=== PATIENT | male | born 1940 | race Caucasian/White ===

== ENCOUNTER 2019-07-26 14:37 | Emergency (ER) | payer MEDICARE, SELFPAY ==
[2019-07-26 14:45] VITALS: PULSE 69; RESP 24; TEMP 36.8; O2SAT 99
--- NOTE | 2019-07-26 14:57 | DI.RAD.S_ITS ---
PROCEDURE: XR CHEST 1V INDICATIONS: SHORTNESS OF BREATH TECHNIQUE: One view of the chest was acquired. COMPARISON: None. FINDINGS: Surgical changes and devices: None. Lungs and pleura: Lungs are clear. No pleural effusions or pneumothorax. A small rounded area of increased density at the lateral right lung base probably represents a nipple shadow. Mediastinum: Mediastinal contours appear normal. Heart size is borderline enlarged. There may be aortic atherosclerosis. Bones and chest wall: No suspicious bony lesions. Degenerative changes of the spine and shoulders are not adequately characterized. Overlying soft tissues appear unremarkable. IMPRESSION: No definite acute cardiopulmonary process is evident. Dictated by: Al Zelaya M.D. on 07/26/2019 at 14:16 Approved by: Al Zelaya M.D. on 07/26/2019 at 14:19
--- NOTE | 2019-07-26 15:02 | ED_ITS ---
HPI - SOB/Dyspnea General Chief Complaint: Shortness of Breath/Dyspnea Stated Complaint: SOB Time Seen by Provider: 07/26/19 14:47 Source: patient Mode of arrival: Ambulatory Limitations: no limitations History of Present Illness HPI Narrative: Patient is a 79-year-old male who presents with increasing shortness of breath. He is rather active. He noticed last night had he started coughing. He was walking up the hill from the [place] today which is something he typically does without any difficulty he started having some increased shortness of breath not enough to stop him. He denies any productive cough he has no chest pain. He does have some audible wheezing. Patient also states that he returned from [place] 4 days ago after being there for number of months. No prior history of a blood clot. MD Complaint: shortness of breath Onset (ago): hour(s) Severity: moderate Consistency/Duration: constant Relieving factors: rest Exacerbating factors: exertion Related Data Home Medications Medication Instructions Recorded Confirmed aspirin 81 mg PO DAILY 07/26/19 07/26/19 pravastatin 40 mg PO BEDTIME 07/26/19 07/26/19 Previous Rx's Medication Instructions Recorded albuterol sulfate 2 puff INHALATION Q4-6H PRN #8.5 07/26/19 gram prednisone 40 mg PO DAILY #10 tab 07/26/19 Review of Systems Review of Systems ROS Unobtainable: All systems reviewed & are unremarkable except as noted in HPI and below Constitutional Constitutional: Denies chills, Denies fever(s), Denies lethargy and Denies weakness Eyes Eyes: Denies change in vision, Denies eye discharge, Denies irritation and Denies loss of vision ENT Ears, Nose, Mouth, and Throat: Denies change in voice, Denies neck pain and Denies sore throat Cardiovascular Cardiovascular: Denies chest pain, Reports pedal edema (always on the right leg not worse today), Reports dyspnea and Reports dyspnea on exertion Respiratory Respiratory: Reports dyspnea and Reports dyspnea on exertion Gastrointestinal Gastrointestinal: Denies abdominal pain, Denies change in bowel habits, Denies diarrhea, Denies nausea and Denies vomiting Genitourinary Genitourinary: Denies hematuria, Denies flank pain, Denies urinary incontinence and Denies urinary urgency Musculoskeletal Musculoskeletal: Denies neck pain Integumentary/Breasts Skin/Breast: Denies pruritus, Denies erythema, Denies rash and Denies wounds Neurologic Neurologic: Denies loss of vision and Denies weakness Patient History Medical History Patient denies medical problems (Acute) Exam Initial Vital Signs Initial Vital Signs: Vital Signs Temperature 98.3 F 07/26/19 14:45 Pulse Rate 69 07/26/19 14:45 Respiratory Rate 24 07/26/19 14:45 Pulse Oximetry 99 07/26/19 14:45 GENERAL: Alert male appears younger than stated HEENT: Head atraumatic,EOMI, pupils reactive, face symmetric, moist mucous membranes CARDIOVASCULAR: Regular rate and rhythm without murmurs, rubs or gallops. RESPIRATORY: Mild conversational dyspnea wheezing bilaterally ABDOMEN: Soft, nontender. Normoactive bowel sounds all 4 quadrants. No guarding or rebound. EXTREMITIES: Normal range of motion, no clubbing or edema. Neurovascularly intact NEUROLOGICAL: Alert and oriented x4.Normal gait and speech. Cranial nerves II through XII grossly intact. SKIN: Warm, dry, no laceration, no petechiae, no rashes or lesions. Course Orders Ordered: ED Orders 07/26/19 14:55 B Type Natriuretic Peptide Stat Complete Blood Count AUTO DIFF Stat Comprehensive Metabolic Panel Stat Partial Thromboplastin Time Stat Procalcitonin Stat Prothrombin Time INR Stat Troponin & CK Cardiac Panel Stat 07/26/19 14:56 Consult to Respiratory Therapy Evaluate & Treat 07/26/19 14:57 XR chest 1V Stat 07/26/19 15:03 EKG-12 Lead Stat 07/26/19 15:15 Lactate (Lactic Acid) Stat 07/26/19 16:18 CT angio chest PE protocol Stat Discontinued Medications Albuterol/Ipratropium (Duoneb) 3 ml INH NOW ONE Stop: 07/26/19 14:49 Last Admin: 07/26/19 15:20 Dose: 3 ml Documented by: NAOMI Vital Signs Vital signs: Vital Signs - 8 hr 07/26/19 14:45 07/26/19 15:21 07/26/19 16:47 Temperature 98.3 F Pulse Rate 69 90 76 Respiratory Rate 24 20 16 Blood Pressure Blood Pressure [Left Arm] 147/76 H Pulse Oximetry 99 97 96 07/26/19 17:00 07/26/19 17:42 07/26/19 18:02 Temperature Pulse Rate 81 84 84 Respiratory Rate 19 17 17 Blood Pressure 158/61 H Blood Pressure [Left Arm] 153/85 H 158/61 H Pulse Oximetry 95 95 95 MDM - SOB/Dyspnea Lab Data Attestation: I reviewed the patient's lab results. Result diagrams: 07/26/19 14:55 07/26/19 14:55 Labs: Lab Results 07/26/19 07/26/19 07/26/19 Range/Units 14:55 14:55 14:55 WBC 11.0 (4.5-11.0) X10^3/uL RBC 4.76 (4.5-5.9) X10^6/uL Hgb 15.1 (13.5-17.5) g/dL Hct 44.8 (41-53) % MCV 94.1 (80-100) fL MCH 31.7 (26-34) PG MCHC 33.7 (30-36) % RDW 13.2 (11.6-14.8) % Plt Count 201 (150-400) X10^3/uL Neut % (Auto) 88.5 H (50-75) % Lymph % (Auto) 4.9 L (25-40) % Campbell % (Auto) 5.1 (3-14) % Eos % (Auto) 1.0 L (2-4) % Baso % (Auto) 0.5 (0-2) % Neut # (Auto) 9800 H (2005-2255) /uL Lymph # (Auto) 500 L (6416-2457) /uL Campbell # (Auto) 600 (0-900) /uL Eos # (Auto) 100 (0-450) /uL Baso # (Auto) 100 (0-100) /uL PT 11.4 (10.1-12.7) SECONDS INR 1.0 (0.9-1.3) APTT 29 (26.4-36.2) SECONDS Sodium 134 L (137-145) mmol/L Potassium 4.4 (3.4-5.1) mmol/L Chloride 98 (98-107) mmol/L Carbon Dioxide 27 (22-32) mmol/L BUN 15 (9-20) mg/dL Creatinine 0.70 (0.66-1.25) mg/dL Estimated GFR > 60.0 (>60) mL/min BUN/Creatinine Ratio 21.4 (6-22) Glucose 120 H (80-110) mg/dL Lactate (0.7-2.1) mmol/L Calcium 9.0 (8.4-10.2) mg/dL Total Bilirubin 1.1 (0.2-1.3) mg/dL AST 32 (17-59) IU/L ALT 19 (<50) IU/L Alkaline Phosphatase 81 (38-126) U/L Total Creatine Kinase 184 H (55-170) U/L CK-MB (CK-2) 5.16 H (<2.37) ng/mL CK-MB (CK-2) Rel Index 2.8 (1.5-5.0) % Troponin I 0.012 (0.01-0.034) ng/mL B-Natriuretic Peptide 109 H (<100) Total Protein 7.0 (6.3-8.2) g/dL Albumin 4.5 (3.5-5.0) g/dL Globulin 2.5 (1.7-4.1) g/dL Albumin/Globulin Ratio 1.8 (1.0-2.8) Procalcitonin (<0.5) ng/mL 07/26/19 07/26/19 Range/Units 14:55 15:15 WBC (4.5-11.0) X10^3/uL RBC (4.5-5.9) X10^6/uL Hgb (13.5-17.5) g/dL Hct (41-53) % MCV (80-100) fL MCH (26-34) PG MCHC (30-36) % RDW (11.6-14.8) % Plt Count (150-400) X10^3/uL Neut % (Auto) (50-75) % Lymph % (Auto) (25-40) % Campbell % (Auto) (3-14) % Eos % (Auto) (2-4) % Baso % (Auto) (0-2) % Neut # (Auto) (9785-0544) /uL Lymph # (Auto) (9055-1518) /uL Campbell # (Auto) (0-900) /uL Eos # (Auto) (0-450) /uL Baso # (Auto) (0-100) /uL PT (10.1-12.7) SECONDS INR (0.9-1.3) APTT (26.4-36.2) SECONDS Sodium (137-145) mmol/L Potassium (3.4-5.1) mmol/L Chloride (98-107) mmol/L Carbon Dioxide (22-32) mmol/L BUN (9-20) mg/dL Creatinine (0.66-1.25) mg/dL Estimated GFR (>60) mL/min BUN/Creatinine Ratio (6-22) Glucose (80-110) mg/dL Lactate 0.9 (0.7-2.1) mmol/L Calcium (8.4-10.2) mg/dL Total Bilirubin (0.2-1.3) mg/dL AST (17-59) IU/L ALT (<50) IU/L Alkaline Phosphatase (38-126) U/L Total Creatine Kinase (55-170) U/L CK-MB (CK-2) (<2.37) ng/mL CK-MB (CK-2) Rel Index (1.5-5.0) % Troponin I (0.01-0.034) ng/mL B-Natriuretic Peptide (<100) Total Protein (6.3-8.2) g/dL Albumin (3.5-5.0) g/dL Globulin (1.7-4.1) g/dL Albumin/Globulin Ratio (1.0-2.8) Procalcitonin < 0.05 (<0.5) ng/mL Urine Dip Bedside Urine Glucose Negative Bedside Urine Bilirubin - Negative Bedside Urine Ketone - Negative Urine Specific [place] 1.030 Bedside Urine Occult Blood - Negative Bedside Urine pH 6.0 Bedside Urine Protein - Negative Bedside Urine Urobilinogen - Negative Bedside Urine Nitrite - Negative Bedside Urine Leukocytes - Negative Esterase Imaging Data Chest x-ray: Radiologist's impression: PROCEDURE: XR CHEST 1V INDICATIONS: SHORTNESS OF BREATH TECHNIQUE: One view of the chest was acquired. COMPARISON: None. FINDINGS: Surgical changes and devices: None. Lungs and pleura: Lungs are clear. No pleural effusions or pneumothorax. A small rounded area of increased density at the lateral right lung base probably re presents a nipple shadow. Mediastinum: Mediastinal contours appear normal. Heart size is borderline enlarged. There may be aortic atherosclerosis. Bones and chest wall: No suspicious bony lesions. Degenerative changes of the spine and shoulders are not adequately characterized. Overlying soft tissues appear unremarkable. IMPRESSION: No definite acute cardiopulmonary process is evident. Dictated by: Al Zelaya M.D. on 07/26/2019 at 14:16 CT scan - chest: Radiologist's impression: PROCEDURE: CT ANGIO CHEST PE PROTOCOL INDICATIONS: SOB RECENT TRAVEL TECHNIQUE: After the administration of intravenous contrast, 2 mm thick sections acquired from the pulmonary apices to the posterior costophrenic angles. 3-dimensional maximum intensity projection (MIP) coronal and sagittal reformats were then acquired through the thorax. For radiation dose reduction, the following was used: automated exposure control, adjustment of mA and/or kV according to patient size. COMPARISON: None. FINDINGS: Image quality: Diagnostic. Pulmonary arteries: Mild prominence of the main pulmonary arterial trunk is identified, measuring up to approximately 3.2 cm in diameter. No intraluminal filling d efects are evident to the subsegmental branches of the bilateral pulmonary arteries. Lungs and pleura: The moderate bronchial wall thickening is identified within it the bilateral lungs (more pronounced within the bilateral lower lobes (left greater than right). There is no lung mass. However, there is an ovoid pleural based nodule evident within the posterior aspect of the right lower lobe that measures 1.2 x 1.4 cm (image 124, series 4). A smaller nodule is evident along the minor fissure within the right middle lobe measuring up to approximately 6 mm in diameter (image 108, series 4). An additional 6 mm nodule is located slightly more inferiorly within the right middle lobe anteriorly open (image 121, series 4). Moderate Mediastinum: The heart is normal in size without a pericardial effusion. Coronary and aortic atherosclerosis is evident. The thoracic aorta is normal in course and caliber. There is a small hiatal hernia with mild prominence of the wall of the distal esophagus. The esophagus is otherwise grossly unremarkable. Small moderate size lymph nodes are seen within the mediastinum, which may be reactive. Small hilar lymph nodes are also present. There is mild bilateral gynecomastia. Bones and chest wall: No suspicious bony lesions. Ribs and thoracic spine appear intact throughout. Ankylosing spondylitis is present involving the thoracic spine. Mi ld bilateral gynecomastia is present. Thyroid gland is not adequately evaluated in. No axillary or supraclavicular adenopathy. Abdomen: Visualized upper abdominal solid organs appear normal in the early arterial phase of enhancement. IMPRESSION: 1. No evidence of pulmonary emboli. 2. Prominent wall thickening of the lower lobe bronchi suggestive of bronchitis. 3. Small right lower lobe and right middle lobe pulmonary nodules. CT would be helpful for better characterization, if indicated. 4. Reactive mediastinal and hilar lymph nodes without feli lymphadenopathy. 5. Small hiatal hernia wtih mild prominence of the wall of the distal esophagus may represent chronic reflux esophagitis. Dictated by: Al Zelaya M.D. on 07/26/2019 at 15:41 ECG Data Attestation: I personally reviewed and interpreted this ECG as follows: Prior ECG tracings: not available for review Interpretation: Normal sinus rhythm rate [address] changes no T-wave inversion p.r. interval 169 QRS 105 QTC 395 no priors to MDM Narrative Medical decision making narrative: Patient was obviously all wheezing. He was given a DuoNeb which he immediately cleared. It started with coughing episode and increasing shortness of breath with exertion. However due to patient's recent travel to [place] will rule out PE. CT is negative for any PE. He is given instructions on spacer his along with prednisone. Some sort of reactive airway disease. At this time does not appear infectious he has no fevers chills, or leukocytosis. Discharge Plan Departure Patient Disposition: Home Clinical Impression: Mild reactive airways disease Qualifiers: Asthma persistence: intermittent Asthma complication type: uncomplicated Qualified Code(s): J45.20 - Mild intermittent asthma, uncomplicated Discharge Date/Time: 07/26/19 18:09 Instructions: DI for Viral Upper Respiratory Infection -- Adult, DI for Reactive Airway Disease-Adult Activity Restrictions/Additional Instructions: *You have been diagnosed with reactive airway disease *What to do: At this time blood work CT scan and chest x-ray are all reassuring no sign of pneumonia. *Continue to take medications as directed Albuterol 1-2 puffs every 4 hours if needed for coughing or shortness breath Prednisone 40 mg once a day start today *Follow up with your primary care provider in 2-3 days *Return to ER if you should have increasing shortness of breath, cough, no relief with albuterol or any new, worsening or concerning symptoms Prescriptions: New albuterol sulfate 90 mcg/actuation HFA aerosol inhaler 2 puff INHALATION Q4-6H PRN (Reason: shortness of breath or wheezing) Qty: 8.5 RF: 0 prednisone 20 mg tablet 40 mg PO DAILY Qty: 10 RF: 0 No Action pravastatin 40 mg Tablet 40 mg PO BEDTIME RF: 0 aspirin 81 mg Tablet,Delayed Release (Dr/Ec) 81 mg PO DAILY RF: 0 Referrals: Ron Harper MD [Family Provider] -
[2019-07-26 15:03] LABS: Add Manual Diff / Slide Review NO; Basophils Absolute Auto 100 /uL (0-100); Basophils Percent Auto 0.5 % (0-2); Eosinophils Absolute Auto 100 /uL (0-450); Hematocrit 44.8 % (41-53); Hemoglobin 15.1 g/dL (13.5-17.5); Lymphocytes Absolute Auto 500 /uL (1100-4500); Lymphocytes Percent Auto 4.9 % (25-40); Mean Corpuscular HGB Conc 33.7 % (30-36); Mean Corpuscular Hemoglobin 31.7 PG (26-34); Mean Corpuscular Volume 94.1 fL (80-100); Monocytes Absolute Auto 600 /uL (0-900); Monocytes Percent Auto 5.1 % (3-14); Neutrophils Absolute Auto 9800 /uL (1500-7000); Neutrophils Percent Auto 88.5 % (50-75); Platelet Count 201 X10^3/uL (150-400); Red Blood Cell Count 4.76 X10^6/uL (4.5-5.9); Red Cell Distribution Width 13.2 % (11.6-14.8)
[2019-07-26 15:09] LABS: Prothrombin Time 11.4 SECONDS (10.1-12.7)
[2019-07-26 15:12] LABS: PTT Partial Thromboplastin Tim 29 SECONDS (26.4-36.2)
[2019-07-26 15:14] LABS: Alanine Aminotransferase 19 IU/L (<50); Albumin 4.5 g/dL (3.5-5.0); Albumin Globulin Ratio 1.8 (1.0-2.8); Alkaline Phosphatase 81 U/L (38-126); Aspartate Aminotransferase 32 IU/L (17-59); BUN Creatinine Ratio 21.4 (6-22); Bilirubin Total 1.1 mg/dL (0.2-1.3); Blood Urea Nitrogen 15 mg/dL (9-20); Carbon Dioxide 27 mmol/L (22-32); Chloride 98 mmol/L (98-107); Creatine Kinase 184 U/L (55-170); Estimated Glomerular Filt Rate > 60.0 mL/min (>60); Globulin 2.5 g/dL (1.7-4.1); Glucose 120 mg/dL (80-110); HEMOLYSIS 17 (0-50); Potassium 4.4 mmol/L (3.4-5.1); Sodium 134 mmol/L (137-145)
[2019-07-26] MEDS: ALBUTEROL/IPRATROPIUM 3 ML AMPUL INH (15:20)
[2019-07-26 15:21] VITALS: PULSE 90; RESP 20; O2SAT 97
[2019-07-26 15:26] LABS: Troponin I 0.012 ng/mL (0.01-0.034)
[2019-07-26 15:30] LABS: CKMB % Relative Index 2.8 % (1.5-5.0); Creatine Kinase MB 5.16 ng/mL (<2.37)
[2019-07-26 15:32] LABS: Procalcitonin < 0.05 ng/mL (<0.5)
[2019-07-26 15:35] LABS: B Type Natriuretic Peptide 109 (<100)
[2019-07-26 15:41] LABS: Lactate (Lactic Acid) 0.9 mmol/L (0.7-2.1)
--- NOTE | 2019-07-26 16:18 | DI.CT.S_ITS ---
PROCEDURE: CT ANGIO CHEST PE PROTOCOL INDICATIONS: SOB RECENT TRAVEL TECHNIQUE: After the administration of intravenous contrast, 2 mm thick sections acquired from the pulmonary apices to the posterior costophrenic angles. 3-dimensional maximum intensity projection (MIP) coronal and sagittal reformats were then acquired through the thorax. For radiation dose reduction, the following was used: automated exposure control, adjustment of mA and/or kV according to patient size. COMPARISON: None. FINDINGS: Image quality: Diagnostic. Pulmonary arteries: Mild prominence of the main pulmonary arterial trunk is identified, measuring up to approximately 3.2 cm in diameter. No intraluminal filling defects are evident to the subsegmental branches of the bilateral pulmonary arteries. Lungs and pleura: The moderate bronchial wall thickening is identified within it the bilateral lungs (more pronounced within the bilateral lower lobes (left greater than right). There is no lung mass. However, there is an ovoid pleural based nodule evident within the posterior aspect of the right lower lobe that measures 1.2 x 1.4 cm (image 124, series 4). A smaller nodule is evident along the minor fissure within the right middle lobe measuring up to approximately 6 mm in diameter (image 108, series 4). An additional 6 mm nodule is located slightly more inferiorly within the right middle lobe anteriorly open (image 121, series 4). Moderate Mediastinum: The heart is normal in size without a pericardial effusion. Coronary and aortic atherosclerosis is evident. The thoracic aorta is normal in course and caliber. There is a small hiatal hernia with mild prominence of the wall of the distal esophagus. The esophagus is otherwise grossly unremarkable. Small moderate size lymph nodes are seen within the mediastinum, which may be reactive. Small hilar lymph nodes are also present. There is mild bilateral gynecomastia. Bones and chest wall: No suspicious bony lesions. Ribs and thoracic spine appear intact throughout. Ankylosing spondylitis is present involving the thoracic spine. Mild bilateral gynecomastia is present. Thyroid gland is not adequately evaluated in. No axillary or supraclavicular adenopathy. Abdomen: Visualized upper abdominal solid organs appear normal in the early arterial phase of enhancement. IMPRESSION: 1. No evidence of pulmonary emboli. 2. Prominent wall thickening of the lower lobe bronchi suggestive of bronchitis. 3. Small right lower lobe and right middle lobe pulmonary nodules. CT would be helpful for better characterization, if indicated. 4. Reactive mediastinal and hilar lymph nodes without feli lymphadenopathy. 5. Small hiatal hernia wtih mild prominence of the wall of the distal esophagus may represent chronic reflux esophagitis. Dictated by: Al Zelaya M.D. on 07/26/2019 at 15:41 Approved by: Al Zelaya M.D. on 07/26/2019 at 16:04
[2019-07-26 16:47] VITALS: BP 147/76; PULSE 76; RESP 16; O2SAT 96
[2019-07-26 17:00] VITALS: BP 153/85; PULSE 81; RESP 19; O2SAT 95
[2019-07-26 17:42] VITALS: BP 158/61; PULSE 84; RESP 17; O2SAT 95
[2019-07-26 18:02] VITALS: BP 158/61; PULSE 84; RESP 17; O2SAT 95
== END 2019-07-26 18:09 | disposition home or self-care (01) ==
PROVIDERS: Emergency Provider Emergency Medicine; Family Provider Family Medicine
DX: J45.20 Mild intermittent asthma, uncomplicated (principal); R06.02 Shortness of breath
CPT/HCPCS: 36415; 71045; 71275; 80053; 81003; 82550; 82553; 83605; 83880; 84145; 84484; 85025; 85610; 85730; 93005; 93010; 94640; 99282; 99285

== ENCOUNTER → 2024-01-28 06:22 | Outpatient (CLI) | payer MEDICARE, SELFPAY ==
--- NOTE | 2024-01-28 06:25 | DI.ECHO.S_ITS ---
[facility] : : [id number] : [place] : : [id number] : : Phone: [phone] Echocardiogram Report + + :Name: TAMIA VIEIRA Study Date: 01/28/2024 Height: 71 in : [facility] ReadingLocation: Weight: 175 lb : : Gender: Male BSA: 2.0 m2 : :: 1940 Age: 83 yrs BP: 150/79 mmHg: :Reason For Study: SYNCOPE AND COLLAPSE : :Ordering Physician: CLARY, : :DAVID Performed By: Lavon Portillo : :Referring: DAVID MEANS : + + Interpretation Summary The study quality was technically difficult. The patient had frequent PVCs during the exam. Left ventricular wall thickness is mildly increased. The ejection fraction is estimated to be 40-45%. The left atrium is severely dilated. The right ventricle is mildly dilated. The right ventricular systolic function is normal. The right atrium is moderately dilated. There is moderate mitral regurgitation. A bicuspid aortic valve cannot be excluded. There is no aortic valve stenosis. There is mild tricuspid regurgitation. The right ventricular systolic pressure is estimated to be at least 37 mmHg based on an estimated right atrial pressure of 8 mm Hg. Procedure: A two-dimensional transthoracic echocardiogram with color flow and Doppler was performed. There is no prior echocardiogram noted for this patient. The study quality was technically difficult. The heart rate ranged between 56-79 bpm during the study. The patient was in normal sinus rhythm during the exam. The patient had frequent PVCs during the exam. Left Ventricle: The left ventricle appears normal in size, wall thickness, and systolic function without any focal wall motion abnormalities. Left ventricular wall thickness is mildly increased. The ejection fraction is estimated to be 40-45%. Right Ventricle: The right ventricle is mildly dilated. The right ventricular systolic function is normal. Atria: The left atrium is severely dilated. The right atrium is moderately dilated. The interatrial septum grossly appears intact with no obvious evidence for an atrial septal defect. Mitral Valve: The mitral valve is normal. There is no mitral valve stenosis. There is moderate mitral regurgitation. Aortic Valve: A bicuspid aortic valve cannot be excluded. The aortic valve is mildly calcified. There is no aortic valve stenosis. No aortic regurgitation is present. Tricuspid Valve: The tricuspid valve is normal. There is no tricuspid stenosis. There is mild tricuspid regurgitation. The right ventricular systolic pressure is estimated to be at least 37 mmHg based on an estimated right atrial pressure of 8 mm Hg. Pulmonic Valve: The pulmonic valve is not well visualized. There is no pulmonic valvular stenosis. There is a trace or physiologic amount of pulmonic regurgitation. Great Vessels: The aortic root is normal size. The ascending aorta could not be visualized. The IVC is dilated (diameter is greater than 2.1 cm) yet it collapses greater than 50% with a sniff. This suggests a right atrial pressure of 8 mm Hg. Pericardium/ Pleura There is no pericardial effusion. There is no pleural effusion. MMode/2D Measurements & Calculations LVIDd: 5.7 cm LVOT diam: 2.3 cm LVIDs: 4.7 cm Ao root diam: 3.6 cm FS: 17.7 % Ao Arch Diam (Prox Trans): 2.8 cm IVSd: 1.1 cm LVPWd: 1.1 cm LV prasad. diameter/BSA (cm/m^2): 2.9 LV sys. diameter/BSA (cm/m^2): 2.4 LA A2 area: 30.4 cm2 RA long axis: 5.9 cm LA A4 area: 23.6 cm2 RA area: 24.3 cm2 LA length (vol): 5.9 cm RA vol: 85.3 ml LA vol: 102.7 ml RA : 42.8 ml/m2 LA vol index: 51.5 ml/m2 IVC diam: 2.6 cm RVD1 (basal): 4.5 cm RVD2 (mid): 4.5 cm TAPSE: 2.2 cm Doppler Measurements & Calculations Ao V2 max: 160.7 cm/sec LVOT Max Feliberto: 100.3 cm/sec Ao V2 mean: 112.8 cm/sec LV V1 max P.1 mmHg Ao max P.3 mmHg LV V1 VTI: 24.8 cm Ao mean P.8 mmHg YARELI(I,D): 2.6 cm2 Ao V2 VTI: 38.3 cm YARELI(V,D): 2.5 cm2 sev ratio: 0.65 YARELI indexed to BSA (cm^2/m^2): 1.3 MV E max feliberto: 40.5 cm/sec TR max feliberto: 270.5 cm/sec MV A max feliberto: 58.4 cm/sec TR max P.3 mmHg MV E/A: 0.69 PA V2 max: 100.6 cm/sec Med Peak E' Feliberto: 2.8 cm/sec PA V2 mean: 78.4 cm/sec E/E' med: 14.7 PA mean P.6 mmHg Lat Peak E' Feliberto: 3.8 cm/sec PA pr(Accel): 28.5 mmHg E/E' lat: 10.7 E/e' average: 12.7 MV dec time: 0.32 sec SV(LVOT): 100.3 ml Reading Physician:11:29 AM
== END ==
LOC: ECHO 06:24
PROVIDERS: Family Provider Family Medicine; PCP Family Medicine; Referring Provider Family Medicine; Visit Provider Family Medicine
DX: I08.1 Rheumatic disorders of both mitral and tricuspid valves (principal); R55 Syncope and collapse
CPT/HCPCS: 93306